=== PATIENT | female | born 1965 | race Caucasian/White ===

== ENCOUNTER → 2021-02-05 | Day surgery (SDC) | payer OTHER ==
[~2021-02-05] VITALS: Ht 162.6 cm; Wt 70.3 kg
[~2021-02-05] MED LIST: BUPROPION XL300 MG PO; CRESTOR10 M1 PO; CYCLOBENZAPRINE10 MG PO; FLOMAX0.4 MG PO; FLONASE ALLER15.8 ML; HCTZ12.5 MG PO; PRILOSEC20 MG PO; VERAPAMIL ER240 M1 PO
[2021-02-05 07:43] LABS: HCT 46.2 % (37.0-47.0); HGB 15.9 g/dl (12.5-16.0); MCH 34.1 pg (25.0-31.0); MCHC 34.4 g/dL (32.0-36.0); MCV 99.1 fL (78.0-100.0); MPV 8.5 fL (6.0-9.5); RBC 4.66 M/uL (4.20-5.40); RDW 12.6 % (11.5-14.0)
[2021-02-05 08:12] LABS: ALBUMIN 3.6 g/dL (3.4-5.0); BILIRUBIN - TOTAL 0.7 mg/dL (0.2-1.0); CREATININE 0.77 mg/dL (0.51-0.95); GLOBULIN (CALCULATION) 4.1 g/dL; POTASSIUM 4.1 mmol/L (3.5-5.1); TOTAL PROTEIN 7.7 g/dL (6.4-8.2)
== END | disposition home or self-care (01) ==
LOC: FAS 07:00
PROVIDERS: Surgery
DX: Z12.11 Encounter for screening for malignant neoplasm of colon (principal); D12.3 Benign neoplasm of transverse colon; K58.9 Irritable bowel syndrome, unspecified; Z86.010 Personal history of colon polyps; I10 Essential (primary) hypertension; F17.200 Nicotine dependence, unspecified, uncomplicated; G89.29 Other chronic pain; M54.9 Dorsalgia, unspecified; Z88.5 Allergy status to narcotic agent; Z79.899 Other long term (current) drug therapy
CPT/HCPCS: 36415; 80053; J1610; J2250; J2704; J7120

== ENCOUNTER 2021-02-23 13:52 | Emergency (ER) | payer OTHER ==
[2021-02-23] MEDS ORDERED: AUGMENTIN 875-1 EACH PO (14:21)
== END 2021-02-23 14:45 | disposition home or self-care (01) ==
LOC: FER 13:52
DX: S61.452A Open bite of left hand, initial encounter (principal); E11.638 Type 2 diabetes mellitus with other oral complications; W54.0XXA Bitten by dog, initial encounter; Y92.009 Unspecified place in unspecified non-institutional (private) residence as the place of occurrence of the external cause
CPT/HCPCS: 99283